=== PATIENT | female | born 1980 | race Caucasian/White ===

== ENCOUNTER 2016-02-26 05:40 | Day surgery (SDC) | payer OTHER ==
[2015-10-18 08:44] VITALS: BMI 23.0
[2016-02-17 14:26] VITALS: BMI 22.0
[~2016-02-26] VITALS: Ht 165.1 cm; Wt 61.4 kg
[~2016-02-26 05:40] MED LIST: ALPR-411 PO; CALC600T9 PO; CHOL2000 PO; DIAZ10TA PO; FOLI1TAB8 PO; HYDR-4332 PO; IRON1CAP2 PO; LACTATED RINGER'S 1000ML 1,000 ML IV SCH; LEVO112C2 PO; MOME50SP5; MONT1TAB3 PO; MULT-506 PO; NIFE30TA83 PO; ONDA8TAB12 PO; PARO1TAB27 PO; SYMIN160 INH
[2016-02-26] MEDS ORDERED: LACTATED RINGER'S 1000ML 1,000 ML IV SCH (06:00)
[2016-02-26] MEDS ORDERED: PROPOFOL IV EMULSION 10 MG/ML 20 ML VIAL IV ONE (06:37)
[2016-02-26] MEDS ORDERED: MIDAZOLAM HCL 1 MG/ML 2ML VIAL ONE (06:37)
[2016-02-26] MEDS ORDERED: LIDOCAINE HCL 2% 2 ML VIAL (20MG/ML) ONE (06:37)
[2016-02-26 06:45] VITALS: BP 114/76; PULSE 71; TEMP 36.6; O2SAT 100; Ht 165.1 cm; Wt 61.4 kg
[2016-02-26] MEDS ORDERED: LACTATED RINGER'S 1000ML 1,000 ML IV PRN (07:14)
[2016-02-26] MEDS ORDERED: FENTANYL CITRATE INJ 50 MCG/1 ML 2 ML VIAL IV PRN (07:15)
[2016-02-26] MEDS ORDERED: ONDANSETRON INJ 2 MG/ML 2 ML VIAL IV PRN (07:15)
[2016-02-26] MEDS ORDERED: FENTANYL CITRATE INJ 50 MCG/1 ML 2 ML VIAL ONE (07:23)
--- NOTE | 2016-02-26 08:26 | Anesthesiology Progress Note ---
Anesthesia Post Op Note Date & Time Feb 26, 2016 at 08:25 Vital Signs Pain Intensity: 0 Vital Signs Past 12 Hours Date Time Temp Pulse Resp B/P Pulse Ox O2 Delivery O2 Flow Rate FiO2 02/26/16 08:20 63 14 98/64 98 Room Air 02/26/16 08:10 71 16 104/73 99 Room Air 02/26/16 08:08 36.2 74 16 104/72 99 Room Air 02/26/16 06:45 36.6 71 20 114/76 100 Room Air Notes Mental Status: alert / awake / arousable, participated in evaluation Pt Amnestic to Procedure: Yes Nausea / Vomiting: adequately controlled Pain: adequately controlled Airway Patency, RR, SpO2: stable & adequate BP & HR: stable & adequate Hydration State: stable & adequate Anesthetic Complications: no major complications apparent Pt doing well.
--- NOTE | 2016-02-26 08:29 | Discharge Instructions ---
Discharge Instructions Visit Reason for Visit: Cervical Radiculopathy At C8 Discharge Goals Goal(s): Diagnostic testing Activity Recommendations Activity Limitations: resume your previous activity Anesthesia . Post Anesthesia Instructions: If you have had General Anesthesia or IV Sedation: * Do not drive today. * Resume driving when surgeon permits. * Do not make important decisions or sign legal documents today. * Call surgeon for: 1. Temperature elevations greater than 101 degrees F. 2. Uncontrollable pain. 3. Excessive bleeding. 4. Persistent nausea and vomiting. 5. Medication intolerance (nausea, vomiting or rash). * For nausea and vomiting use only clear liquids such as: tea, soda, bouillon until nausea subsides, then gradually increase diet as tolerated. * If you have any concerns or questions, call your surgeon's office. If physician is unavailable and it is an emergency, call 911 or go to the nearest emergency room. . Diet Recommendations Recommended Home Diet: resume previous diet Pending Studies Studies pending at discharge: no Medical Emergencies . Who to Call and When: Medical Emergencies: If at any time you feel your situation is an emergency, please call 911 immediately. . Non-Emergent Contact Non-Emergency issues call your: Primary Care Provider . . "Provider Documentation" section prepared by Mayito Anthony.
[2016-02-26 08:35] VITALS: BP 107/62; PULSE 78; TEMP 36.6; O2SAT 100
--- NOTE | 2016-02-26 08:40 | DIAGNOSTIC IMAGING REPORT ---
MRI OF THE CERVICAL SPINE WITHOUT CONTRAST CLINICAL HISTORY: CERVICAL RADICULOPATHY C8. COMPARISON: None TECHNIQUE: This exam was performed with anesthesia. Utilizing a 1.5 Mojgan magnet and dedicated coil, multiplanar, multiecho imaging of the cervical spine was performed without IV contrast. FINDINGS: This exam is mildly compromised by artifact. Alignment of the cervical spine is anatomic. Vertebral body heights are maintained. Cervical cord signal and caliber are normal. There is no intracanalicular mass or fluid collection. C2-C3: The central canal and neural foramen are patent. C3-C4: The central canal and neural foramen are patent. C4-C5: The central canal and neural foramen are patent. C5-C6: The central canal and neural foramen are patent. C6-C7: There is a moderate-sized central/left paracentral disc protrusion that contacts the ventral aspect of the cord. This results in mild to moderate narrowing of the central canal. The neural foramen are patent. C7-T1: The central canal and neural foramen are patent. IMPRESSION: 1. Moderate sized central/left paracentral disc protrusion at C6-C7 that contacts the ventral aspect of the cord and results in mild to moderate narrowing of the central canal. 2. Study mildly compromised by motion artifact. Electronically signed by: Adarsh Nevarez M.D. 02/26/2016 8:38 AM
[2016-02-26 09:05] VITALS: BP 111/68; PULSE 70; TEMP 36.2; O2SAT 100
[2016-04-28] MEDS ORDERED: VITAMIN B12 IM (15:03)
[2016-04-28] MEDS ORDERED: METH2.5T PO (15:03)
[2016-04-28] MEDS ORDERED: HYDR200T5 PO (15:03)
[2016-04-28] MEDS ORDERED: DIAZ10TA PO (15:03)
[2016-04-28] MEDS ORDERED: LEVO-14 PO (15:03)
[2016-04-28] MEDS ORDERED: MAGN250T8 PO (15:03)
[2016-04-28] MEDS ORDERED: ALBU18002 INH (15:03)
[2016-12-24] MEDS ORDERED: DICY10CA55 PO (09:52)
[2016-12-24] MEDS ORDERED: XNX25 PO (09:52)
[2016-12-24] MEDS ORDERED: B-CO1CAP3 PO (09:52)
[2016-12-24] MEDS ORDERED: FERR1TAB61 PO (09:52)
== END 2016-02-26 09:09 | disposition home or self-care (01) ==
LOC: C.ACU 05:40
PROVIDERS: ATTEND Orthopaedic Surgery Orthopaedic Surgery of the Spine
DX: M50.10 Cervical disc disorder with radiculopathy, unspecified cervical region (principal); I10 Essential (primary) hypertension; J45.909 Unspecified asthma, uncomplicated; Z85.51 Personal history of malignant neoplasm of bladder; Z85.41 Personal history of malignant neoplasm of cervix uteri; K21.9 Gastro-esophageal reflux disease without esophagitis; M32.9 Systemic lupus erythematosus, unspecified; Z98.890 Other specified postprocedural states

== ENCOUNTER 2016-05-12 05:20 | Observation (INO) | payer OTHER ==
[2016-04-28 14:39] VITALS: BMI 22.0
[~2016-05-12] VITALS: Ht 165.1 cm; Wt 61.8 kg
[2016-05-12] VITALS (17 sets, daily range): BP systolic 93–120; BP diastolic 53–81; PULSE 64–87; TEMP 36.5–37; O2SAT 97–100; Ht 165.1 cm; Wt 61.8 kg
[~2016-05-12 05:20] MED LIST changes: +ALBU18002 INH; -ALPR-411 PO; +FOLI1TAB7 PO; -FOLI1TAB8 PO; +HYDR200T5 PO; -IRON1CAP2 PO; -LACTATED RINGER'S 1000ML 1,000 ML IV SCH; +LEVO-14 PO; +MAGN250T8 PO; +METH2.5T PO; -PARO1TAB27 PO; +VITAMIN B12 IM
[2016-05-12] MEDS ORDERED: CeleBREX 200 MG CAP PO SCH (06:00)
[2016-05-12] MEDS ORDERED: SCOPOLAMINE 1.5 MG TDSY TD SCH (06:00)
[2016-05-12] MEDS ORDERED: PREGABALIN 75 MG CAP PO SCH (06:00)
[2016-05-12] MEDS ORDERED: CEFAZOLIN 2000 MG/60 ML D5W 60 ML IV SCH (06:00)
[2016-05-12] MEDS ORDERED: LACTATED RINGER'S 1000ML 1,000 ML IV SCH (06:00)
[2016-05-12] MEDS ORDERED: MIDAZOLAM HCL 1 MG/ML 2ML VIAL ONE (06:41)
[2016-05-12] MEDS ORDERED: FENTANYL CITRATE INJ 50 MCG/1 ML 2 ML VIAL ONE ×3 (06:41→07:55)
[2016-05-12] MEDS ORDERED: BACITRACIN 50000 UNIT VIAL ONE (06:48)
[2016-05-12] MEDS ORDERED: THROMBIN 5000 UNITS KIT ONE (06:48)
--- NOTE | 2016-05-12 07:28 | History and Physical ---
History & Physical Date May 12, 2016. Chief Complaint neck and left arm pain History of Present Illness The patient is a 36 year old female with complaints of above who has had symptoms chronically despite outpatient treatment. MRI shows C6-7 HNP without myelomalacia. EMG shows left C8-T1 radiculopathy. she has intermittent numbness and no weakness. hx of RA not on disease modifying agents. no myelopathic symptoms Past Medical/Surgical History asthma RA anxiety thyroid disease hx of partial hyster Bladder CA hx of seizure urostomy no tob use Additional History Hepatic Disease: No Endocrine Disorder: Yes Kidney Disease: No Hypertension: No Heart Disease: No Bleeding Tendencies: No Infectious Diseases: No Allergies Coded Allergies: Amitriptyline (Unverified Allergy, Unknown, FOGGY FEELING NAUSEA AND VOMITING, 05/12/16) Azathioprine (Unverified Allergy, Unknown, DIARRHEA VOMITING, 05/12/16) Azithromycin (Unverified Allergy, Unknown, DIARRHEA,VOMITING, 05/12/16) Dodd Pepper (Unverified Allergy, Unknown, HIVES, 05/12/16) Buprenorphine (Unverified Allergy, Unknown, PATCH-METAL TASTE FEELS WEIRD NAUSEA, 05/12/16) Cyclobenzaprine (Unverified Allergy, Unknown, GI UPSET, 05/12/16) Grapefruit (Unverified Allergy, Unknown, HIVES, 05/12/16) Pentosan Polysulfate (Unverified Allergy, Unknown, DIARRHEA VOMITING, 05/12) Tolterodine (Unverified Allergy, Unknown, VOMITING, 05/12/16) Watermelon (Unverified Allergy, Unknown, HIVES, 05/12/16) Home Medications Scheduled Calcium Carbonate-Vitamin D (Calcium + D), 1 TAB PO QAM Cholecalciferol (Vitamin D3), 1 CAP PO QAM Folic Acid (Folvite), 1 MG PO 5X DAY Hydroxychloroquine Sulfate (Plaquenil), 400 MG PO BID Levocetirizine Dihydrochloride (Levocetirizine Dihydrochl), 1 TAB PO QAM Levothyroxine Sodium (Tirosint), 112 MCG PO QAM Magnesium Oxide (Mg Supplement (Magnesium), 20 MG PO QAM Methotrexate (Methotrexate), 7.5 MG PO WEDNESDAY Mometasone Furoate (Nasonex), 2 SPRAY NA QAM Montelukast Sodium (Singulair), 10 MG PO QAM Multivitamin (Multivitamin), 1 TAB PO QAM Nifedipine Ext Rel (Procardia Xl Ext Rel), 30 MG PO QAM Ondansetron Hcl (Zofran), 8 MG PO BID [Vitamin B12], 1 DOSE IM MONTHLY Scheduled PRN Albuterol Sulfate (Proair Respiclick), 1 PUFF INH QD PRN for Shortness of Breath Budesonide/Formoterol Fumarate (Symbicort 160/4.5 Inhaler ), 2 PUFFS INH BID PRN for Shortness of Breath Diazepam (Valium), 10 MG PO BID PRN for Anxiety Hydrocodone-Acetaminophen (LORTAB 10-325 mg), 1 TAB PO Q4-6H PRN for Pain Physical Examination Skin: warm/dry Eyes: normal inspection ENT: normal ENT inspection Head: normocephalic, atraumatic Neck: supple Respiratory/Chest: lungs clear, no respiratory distress Cardiovascular: regular rate, rhythm Back: normal inspection Extremities: normal inspection, normal range of motion Neurologic/Psych: no motor/sensory deficits, alert, normal reflexes, oriented x 3 Diagnosis C6-7 HNP Plan of Treatment ACDF C6-7
[2016-05-12] MEDS ORDERED: HYDROmorphone INJ 0.5 MG/0.5 ML SYR IV PRN (08:30)
[2016-05-12] MEDS ORDERED: ATROPINE SULFATE 0.1 MG/ML 5ML SYR IV PRN (08:30)
[2016-05-12] MEDS ORDERED: EpHEDrine SULFATE INJ 50 MG/ML AMP IV PRN (08:30)
[2016-05-12] MEDS ORDERED: ONDANSETRON INJ 2 MG/ML 2 ML VIAL IV PRN ×2 (08:30→09:00)
[2016-05-12] MEDS ORDERED: HYDROmorphone INJ 2 MG/ML SYR/VIAL ONE ×2 (08:32→09:20)
[2016-05-12] MEDS ORDERED: RANITIDINE HCL 25 MG/ML INJ ONE (08:34)
[2016-05-12] MEDS ORDERED: ONDANSETRON INJ 2 MG/ML 2 ML VIAL ONE (08:34)
[2016-05-12] MEDS ORDERED: ESMOLOL HCL 10 MG/ML 10 ML VIAL ONE (08:34)
[2016-05-12] MEDS ORDERED: LIDOCAINE HCL 2% 2 ML VIAL (20MG/ML) ONE (08:34)
[2016-05-12] MEDS ORDERED: GLYCOPYRROLATE INJ 0.2 MG/ML VIAL ONE (08:34)
[2016-05-12] MEDS ORDERED: PROPOFOL IV EMULSION 10 MG/ML 20 ML VIAL IV ONE (08:34)
[2016-05-12] MEDS ORDERED: DEXAMETHASONE SOD INJ 4 MG/ML VIAL ONE (08:34)
[2016-05-12] MEDS ORDERED: NEOSTIGMINE METHYLSULFATE 1 MG/ML 10ML VIAL ONE (08:34)
[2016-05-12] MEDS ORDERED: ROCURONIUM BROMIDE 10 MG/ML 5 ML VIAL ONE (08:34)
--- NOTE | 2016-05-12 08:48 | [facility] Post Operative Brief Note ---
Immediate Operative Summary Operative Date May 12, 2016. Pre-Operative Diagnosis Cervical Herniated Nucleus Pulposus C6-C7 Post-Operative Diagnosis Same as preoperative diagnosis. Procedure(s) Performed C6-C7 Anterior Cervical Discectomy and Fusion, with Allograft Surgeon [employer] Setter Surgeon(s) None Estimated Blood Loss 5ML Findings dict Specimens None per surgeon.
[2016-05-12] MEDS ORDERED: LORAZEPAM INJ 0.5 MG in SYRINGE 0.75 ML IV PRN (09:00)
[2016-05-12] MEDS ORDERED: NALOXONE HCL 0.4 MG/1 ML VIAL/CARP IV PRN (09:00)
[2016-05-12] MEDS ORDERED: RACEPINEPHRINE 2.25% NEBU SOLN 0.5 ML VIAL INH PRN (09:00)
[2016-05-12] MEDS ORDERED: BUDESONIDE/FORMOTEROL FUMARATE 160/4.5 60 PUFFS/INHALER INH PRN (09:00)
[2016-05-12] MEDS ORDERED: ACETAMINOPHEN IV 1,000 MG in EMPTY BAG 0 ML IV PRN (09:00)
[2016-05-12] MEDS ORDERED: DiphenhydrAMINE HCL 50 MG/ML VIAL IV PRN (09:00)
[2016-05-12] MEDS ORDERED: LORAZEPAM 0.5 MG TAB PO PRN (09:00)
[2016-05-12] MEDS ORDERED: DIAZEPAM 5MG TAB PO PRN (09:00)
[2016-05-12] MEDS ORDERED: DEXAMETHASONE INJ 8 MG in SYRINGE 0 ML IV PRN (09:00)
[2016-05-12] MEDS: FENTANYL CITRATE INJ 50 MCG/1 ML 2 ML VIAL IV PRN ×4 (09:07→09:22)
[2016-05-12] MEDS ORDERED: IV FLUIDS COMPLETED PRN (09:45)
--- NOTE | 2016-05-12 09:59 | Anesthesiology Progress Note ---
Anesthesia Post Op Note Date & Time May 12, 2016 at 09:59 Vital Signs Pain Intensity: 3 Vital Signs Past 12 Hours Date Time Temp Pulse Resp B/P Pulse Ox O2 Delivery O2 Flow Rate FiO2 05/12/16 09:45 82 14 129/82 99 Nasal Cannula 2 05/12/16 09:35 83 14 112/72 99 Nasal Cannula 2 05/12/16 09:25 71 15 116/77 99 Nasal Cannula 2 05/12/16 09:15 71 14 114/74 100 Mask 10 05/12/16 09:05 86 14 117/76 100 Mask 10 05/12/16 08:56 36.4 81 14 115/80 98 Mask 10 05/12/16 05:50 37 68 18 112/77 98 Room Air Notes Mental Status: alert / awake / arousable, participated in evaluation Pt Amnestic to Procedure: Yes Nausea / Vomiting: adequately controlled Pain: adequately controlled Airway Patency, RR, SpO2: stable & adequate BP & HR: stable & adequate Hydration State: stable & adequate Anesthetic Complications: no major complications apparent
[2016-05-12] MEDS ORDERED: FLOSEAL HEMOSTATIC MATRIX 5ML TOP ONE (10:03)
[2016-05-12] MEDS ORDERED: ALBUTEROL HFA 8 GM INHALER INH PRN (11:30)
[2016-05-12] MEDS: SODIUM CHLORIDE 0.9% 1000ML 1,000 ML IV SCH ×2 (11:45→23:23)
--- NOTE | 2016-05-12 12:02 | DIAGNOSTIC IMAGING REPORT ---
INTRAOPERATIVE CERVICAL SPINE 3 VIEWS CLINICAL HISTORY: C6-7 discectomy COMPARISON STUDY: MRI dated 02/26/2016 FINDINGS: 13 seconds of fluoroscopic time was utilized. 3 intraoperative fluoroscopic spot images are provided for interpretation. There are postsurgical changes of a C6-7 anterior discectomy with interbody implant. IMPRESSION: Postsurgical changes of a C6-7 anterior cervical discectomy and implant Electronically signed by: Niels Schaefer M.D. 05/12/2016 12:00 PM Dictated Date/Time: 05/12/2016 11:59 AM
[2016-05-12] MEDS: OXYCODONE HCL IR 5 MG TAB (IMMEDIATE RELEASE) PO PRN ×2 (12:56→19:00)
[2016-05-12] MEDS: DEXAMETHASONE INJ 6 MG in SYRINGE 0 ML IV SCH ×2 (13:32→21:47)
[2016-05-12] MEDS: CEFAZOLIN IV 1,000 MG in DEXTROSE 5% 50ML 50 ML IV SCH ×2 (15:45→23:23)
[2016-05-12] MEDS: CHECK SCOPOLAMINE PATCH PLACEMENT SCH ×2 (15:45→23:24)
[2016-05-12] MEDS ORDERED: COUGH DROP (SUGAR FREE) LOZ 24 LOZ/1 BOX ONE (15:50)
[2016-05-12] MEDS ORDERED: CHECK SCOPOLAMINE PATCH PLACEMENT SCH (16:00)
[2016-05-12] MEDS ORDERED: COUGH DROP (SUGAR FREE) LOZ 24 LOZ/1 BOX PO PRN (16:00)
[2016-05-12] MEDS: ONDANSETRON 8 MG TAB PO SCH (21:47)
[2016-05-13] VITALS (11 sets, daily range): BP systolic 95–102; BP diastolic 58–64; PULSE 62–80; TEMP 36.7–37.3; O2SAT 97–99
[2016-05-13] MEDS: OXYCODONE HCL IR 5 MG TAB (IMMEDIATE RELEASE) PO PRN ×3 (01:45→10:09)
[2016-05-13] MEDS: DEXAMETHASONE INJ 6 MG in SYRINGE 0 ML IV SCH (05:47)
[2016-05-13] MEDS ORDERED: SCOPOLAMINE 1.5 MG TDSY TD SCH (06:00)
[2016-05-13] MEDS ORDERED: LACTATED RINGER'S 1000ML 1,000 ML IV SCH (06:00)
[2016-05-13] MEDS ORDERED: PREGABALIN 75 MG CAP PO SCH (06:00)
[2016-05-13] MEDS ORDERED: CeleBREX 200 MG CAP PO SCH (06:00)
[2016-05-13] MEDS ORDERED: LEVOTHYROXINE 112 MCG TAB PO SCH (06:00)
[2016-05-13] MEDS ORDERED: CEFAZOLIN 2000 MG/60 ML D5W IV SCH (06:00)
--- NOTE | 2016-05-13 07:32 | Discharge Instructions ---
Discharge Instructions Date of Service May 13, 2016. Admission Reason for Admission: Cervical Spinal Stenosis Discharge Discharge Diagnosis / Problem: same Discharge Goals Goal(s): Decrease discomfort Activity Recommendations Activity Limitations: per Instructions/Follow-up section Lifting Limitations: no more than 10 pounds . Instructions / Follow-Up Instructions / Follow-Up ACTIVITY RECOMMENDATIONS: SELF CARE INSTRUCTIONS AFTER CERVICAL FUSIONS 1. No smoking. Smoking drastically decreases the chance of a solid fusion. 2. No bending, lifting more than 5 pounds, or twisting (roll like a log when turning in bed). 3. You may shower 3 days after surgery. Thoroughly dry wound. Do not soak in the tub. 4. Cervical collar: Must be worn at all times including sleeping. You may remove the brace only to bath, eat and if you are sitting in a recliner. 5. Please walk as much as you can for exercise. Gradually increase the distance that you walk as your endurance increases. SPECIAL CARE INSTRUCTIONS: VERY IMPORTANT TO READ AND REVIEW A. Do not take any anti-inflammatory medications (i.e. Indocin, Advil, Aspirin, Naprosyn, Aleve, Motrin, etc.) as these may inhibit the chance of a solid fusion. Tylenol is okay to take. B. Your surgical incision has been closed with a cosmetic suture under the skin that will dissolve in about 6 weeks. In 14 days, you can use a pair of clean scissors and cut the suture that is left outside of the skin at the ends of your incision. C. Complications are uncommon, but please contact us if you have any signs or symptoms of: 1. wound infection (fever higher than 102.5 degrees F, redness, separation of wound, drainage, or increasing pain from the incision) 2. blood clots in legs (pain, swelling, redness and warmth in legs) 3. urinary tract infection (fever higher than 102.5 degrees, burning upon urination or increased frequency of urination) 4. nerve problems (inability to walk on your toes or heels, numbness, loss of bowel or bladder control) 5. any other symptoms that concern you. D. Please call the office at if you have any concerns or questions about your operation or recovery. MANAGING PAIN AFTER SPINAL SURGERY 1. Narcotic medication is intended for short-term use and will be provided for surgical pain. Surgical pain usually lasts for a period of 4-6 weeks. Narcotic medication includes Percocet, Vicodin, Darvocet, Tylenol #3 or Lortab. 2. Longer-term pain is more appropriately treated with non-narcotic medication such as Tylenol ES. 3. Muscle spasm is not appropriately treated with narcotics. Muscle relaxers such as Soma, Flexeril or Skelaxin can be used along with Tylenol ES. 4. Remember that we all live with some "aches and pains". This is not unusual or uncommon after an injury or as we get older. 5. We will provide appropriate medication within the normal guidelines of their prescribed use. We will also be very cautious and aware of potential abuse and extended duration of patients' medication needs. 6. Please allow 2-3 days to process refills. Prescriptions will not be mailed but must be picked up at the office. FOLLOW UP VISIT: Keep your scheduled follow-up appointment. Any questions, please call the office at . Current Hospital Diet Patient's current hospital diet: regular Discharge Diet Recommended Diet: Regular Diet Procedures Procedures Performed: C6-C7 Anterior Cervical Discectomy and Fusion, with Allograft Pending Studies Studies pending at discharge: no Medical Emergencies . Who to Call and When: Medical Emergencies: If at any time you feel your situation is an emergency, please call 911 immediately. . Non-Emergent Contact Non-Emergency issues call your: Surgeon . "Provider Documentation" section prepared by Garcia Cervantes. VTE Core Measure Inpt VTE Proph given/why not?: Jose Manuel Colindres, SCD's [place] Drug Monitoring Program Search Results: patient reviewed within database, no issues identified
[2016-05-13] MEDS: CHECK SCOPOLAMINE PATCH PLACEMENT SCH (07:38)
[2016-05-13] MEDS: CEFAZOLIN IV 1,000 MG in DEXTROSE 5% 50ML 50 ML IV SCH (07:38)
[2016-05-13] MEDS: ONDANSETRON 8 MG TAB PO SCH (08:55)
[2016-05-13] MEDS ORDERED: MONTELUKAST SOD 10 MG TAB PO SCH (09:00)
[2016-05-13] MEDS ORDERED: CHOLECALCIFEROL 1000 INTER.UNIT TAB PO SCH (09:00)
[2016-05-13] MEDS ORDERED: NIFEdipine 30 MG CR TAB PO SCH (09:00)
[2016-05-13] MEDS ORDERED: MAGNESIUM OXIDE 400 MG TAB PO SCH (09:00)
--- NOTE | 2016-05-13 09:51 | Discharge Summary ---
Orthopedic Discharge Summary Admission Date/Reason May 12, 2016 at 08:52 Cervical Spinal Stenosis. Discharge Date/Disposition May 13, 2016 Home Diagnosis Principal Diagnosis: cervical stenosis/DDD Procedure(s) Performed ACDF C6-7 Admission Physical Exam As per Admitting History & Physical. Hospital Course Admitted for elective surgery. The patient did well with no complications, tolerated diet, mobilized independently, remained HD stable, and was discharged in good condition with resolution of preop symptoms. Discharge Instructions Please refer to the electronic Patient Visit Report (Discharge Instructions) for additional information.
--- NOTE | 2016-05-13 14:41 | Orthopedic Progress Note ---
Orthopedic Progress Note Date of Service May 13, 2016. Subjective Post OP Day: 1 Reports: feeling well, pain controlled w PO medications, Denies: SOB, calf pain , chest pain, complaints, light headedness, nausea / vomiting, using ANIMAL CARETAKER Objective calves soft nontender, N/V intact, dressing C/D/I, A&O x3, hemovac drainage Date Time Temp Pulse Resp B/P Pulse Ox O2 Delivery O2 Flow Rate FiO2 05/13/16 09:57 36.9 78 18 98 Room Air 05/13/16 09:40 37.3 16 101/62 97 Room Air 05/13/16 09:40 36.9 18 101/61 98 Room Air 2.0 05/13/16 09:14 36.9 78 18 101/61 98 Room Air 05/13/16 07:44 69 16 97 Room Air 05/13/16 07:17 36.9 80 18 101/64 98 Room Air 2.0 05/13/16 07:14 Room Air 05/13/16 07:00 36.9 80 18 101/64 98 Room Air 05/13/16 05:50 36.8 67 18 100/64 97 Room Air 05/13/16 04:01 72 16 98 Room Air 05/13/16 03:46 36.7 71 16 102/63 98 Nasal Cannula 2.0 05/13/16 01:50 36.9 62 16 95/58 99 Nasal Cannula 2.0 05/13/16 01:50 36.9 62 16 95/58 99 Nasal Cannula 2.0 05/13/16 00:00 72 16 97 Nasal Cannula 2.0 05/12/16 23:40 36.6 71 16 93/53 97 Nasal Cannula 2.0 05/12/16 21:45 36.7 76 16 99/59 100 Nasal Cannula 2.0 Humidified Oxygen 05/12/16 19:45 71 14 98 Nasal Cannula 2.0 05/12/16 19:40 36.9 69 16 99/63 99 Nasal Cannula 2.0 Humidified Oxygen 05/12/16 19:30 Nasal Cannula 2.0 05/12/16 17:40 36.8 69 16 101/66 100 Nasal Cannula 2.0 Humidified Oxygen 05/12/16 17:40 36.8 69 16 101/66 100 Nasal Cannula 2.0 Humidified Oxygen 05/12/16 15:43 36.6 64 99 108/73 99 Nasal Cannula 2.0 05/12/16 15:42 36.6 64 99 108/73 99 Nasal Cannula 2.0 05/12/16 15:41 74 14 97 Nasal Cannula 2.0 Assessment & Plan Assessment: doing great, pleased, no swelling, isabela diet, desires d/c Discharge Planning Discharge Planning: home
[2016-05-13] MEDS ORDERED: CHECK SCOPOLAMINE PATCH PLACEMENT SCH (16:00)
[2016-05-15] MEDS ORDERED: SCOPOLAMINE 1.5 MG TDSY TD SCH (06:00)
--- NOTE | 2016-05-19 14:39 | OPERATIVE REPORT ---
DATE OF OPERATION: 05/12/2016 PREOPERATIVE DIAGNOSES: C6-7 herniated nucleus pulposus. POSTOPERATIVE DIAGNOSIS: Same. PROCEDURES: 1. C6-7 anterior cervical discectomy and fusion with application of PEEK intervertebral spacer with local autograft, DBM putty. 2. Anterior cervical instrumentation with LDR anterior cervical blade. SURGEON: Dr. Cervantes. CRIMINAL PSYCHOLOGIST: OR staff. ANESTHESIA: General endotracheal anesthesia. COMPLICATIONS: None. ESTIMATED BLOOD LOSS: Minimal. OPERATION AND FINDINGS: PROCEDURE: After identification of patient and operative level, she was brought to the OR where she underwent induction of general anesthesia. She was then positioned supine on the OR table with all bony prominences well padded. Care was taken to avoid pressure on the periorbital area. She was positioned supine on the table with Jean horseshoe headholder. The anterior neck was sterilely prepped and draped in usual fashion. The arms were tucked at sides and well padded. Shoulders were taped distally and the anterior neck was sterilely prepped and draped in usual fashion. Timeout was performed, level was confirmed and transverse skin incision was made at the level of the cricoid cartilage on the right side of the neck. I divided the platysma in line with the incision and then exposed the sternocleidomastoid and proceeded medial to this. Routine anterior cervical exposure was accomplished with blunt dissection medial to the carotid sheath. After identification of presumptive disc space, I confirmed with fluoroscopy and marked it with electrocautery and then mobilized longus colli. I placed self-retaining cervical retractor. Placed [place] pins in the body of C6 and C7 and reconfirmed level and then did a complete discectomy at the operative level. Discectomy was carried back to the posterior annulus, which was removed. There was disc material posterior to this with distension of the PLL. I then removed the disc fragment behind the annulus and then took down the PLL and confirmed no further disc was noted. I palpated the neural foramina, confirmed the nerve roots were free and then decorticated the endplates at C6-C7 with a high speed nick. I then determined graft size with trial sizers. I then inserted an LDR PEEK cage filled with local bone and DBM putty into the defect. [place] pins were removed along with distraction and bone wax was applied over the holes. I then applied LDR anterior cervical plates in the body of C6 and C7 to anchor the cage. I checked final x-rays, irrigated with bacitracin solution and confirmed hemostasis and closed over a small round drain. All sponge and needle counts were correct at the end of the case. I attest to the content of the Intraoperative Record and any orders documented therein. Any exceptio ns are noted below.
== END 2016-05-13 10:55 | disposition home or self-care (01) ==
LOC: ENRESERVTM → ENRESERVDT → C.ACU 05:20 → C.3E 08:52
PROVIDERS: ADMIT Orthopaedic Surgery Orthopaedic Surgery of the Spine; ATTEND Orthopaedic Surgery Orthopaedic Surgery of the Spine
DX: M50.223 Other cervical disc displacement at C6-C7 level (principal); M48.02 Spinal stenosis, cervical region; J45.909 Unspecified asthma, uncomplicated; M06.9 Rheumatoid arthritis, unspecified; Z85.51 Personal history of malignant neoplasm of bladder; Z90.710 Acquired absence of both cervix and uterus; Z91.018 Allergy to other foods